=== PATIENT | male | born 1950 | race Caucasian/White ===

== ENCOUNTER 2016-08-02 12:11 | Inpatient (IN) | payer MEDICARE ==
[~2016-08-02] VITALS: Ht 172.7 cm; Wt 103.4 kg
[2016-08-02] MEDS ORDERED: NIACIN PO (12:24)
[2016-08-02] MEDS ORDERED: QUIN40TA PO (12:24)
[2016-08-02] MEDS ORDERED: ZOLP6.252 PO (12:24)
[2016-08-02] MEDS ORDERED: [UNRECOGNIZED DRUG - OTHER] PO (12:24)
[2016-08-02] MEDS ORDERED: ATOR40TA PO (12:24)
[2016-08-02] MEDS ORDERED: IV NORMAL SALINE 1000 ML BAG IV ONE ×2 (12:30→15:00)
[2016-08-02 12:34] LABS: BASOPHILS # (AUTO) 0.1 K/uL (0.0-8.0); EOSINOPHILS # (AUTO) 0.1 K/uL (0.0-0.7); EOSINOPHILS % (AUTO) 0.9 % (0.0-7.0); HEMATOCRIT 44.1 % (36.7-47.1); HEMOGLOBIN 15.2 g/dL (12.5-16.3); LYMPHOCYTES # (AUTO) 1.1 K/uL (40.0-85.0); LYMPHOCYTES % (AUTO) 11.9 % (20.5-51.5); MEAN CORPUSCULAR HEMOGLOBIN 31.8 uug (23.8-33.4); MEAN CORPUSCULAR HGB CONC 34 g/dL (32.5-36.3); MEAN CORPUSCULAR VOLUME 92.4 fL (73.0-96.2); MONOCYTES % (AUTO) 10.9 % (0.0-11.0); NEUTROPHILS # (AUTO) 6.6 K/uL (1.8-8.9); NEUTROPHILS % (AUTO) 75.3 % (38.5-71.5); PLATELET COUNT (AUTO) 230 K/uL (152-348); RED BLOOD CELL COUNT(AUTO) 4.77 MIL/uL (4.06-5.63); RED CELL DISTRIBUTION WIDTH 12.9 % (12.1-16.2); WHITE BLOOD COUNT (AUTO) 8.9 K/uL (3.6-10.2)
[2016-08-02 12:38] LABS: CALCIUM 8.7 mg/dL (8.5-10.1); POTASSIUM 3.1 mmol/L (3.5-5.1)
[2016-08-02 12:39] LABS: CREATININE 1.9 mg/dL (0.6-1.3)
--- NOTE | 2016-08-02 14:00 | NUR ---
pt transfered to floor in stable condition. er md aware of k level nad blood pressure . oked the pt to be transferd.
[2016-08-02 14:10] VITALS: BP 88/59
--- NOTE | 2016-08-02 14:10 | NUR ---
NEW PATIENT TO ROOM 204 FROM ER AWAKE ALERT COOPERTATE WELL VS TAKEN ,STILL LOW BP NO C/O OF DIZZINESS ON FALL PRECAUTION CALL RODRIGUEZ IN REACH AND BED ALARM ON INSTRUCTION TO CALL WHEN NEED
[2016-08-02] MEDS ORDERED: ACETAMINOPHEN 325 MG TABLET PO PRN (15:00)
[2016-08-02] MEDS ORDERED: ONDANSETRON 4 MG/2 ML VIAL IV PRN (15:00)
[2016-08-02] MEDS ORDERED: AMIODARONE HCL IV 150 MG in IV DEXTROSE 5% 100 ML IV ONE (15:00)
--- NOTE | 2016-08-02 15:00 | NUR ---
START IVF BOLUS ORDER RESTING NO SOB OR PAIN
[2016-08-02] MEDS ORDERED: IV NS 1000 ML 1,000 ML IV ONE (15:15)
[2016-08-02] MEDS ORDERED: POTASSIUM CHLORIDE 10 MEQ CAPSULE.SA PO ONE (15:15)
[2016-08-02] MEDS ORDERED: AMIODARONE HCL IV 900 MG in IV DEXTROSE 5% 482 ML IV PRN (15:15)
[2016-08-02 16:19] VITALS: BP 86/44
--- NOTE | 2016-08-02 17:00 | NUR ---
EAT DINNER WELL NO PAIN OR SOB
[2016-08-02 18:00] VITALS: BP 90/54
[2016-08-02] MEDS ORDERED: RIVAROXABAN 15 MG TABLET PO SCH (18:00)
--- NOTE | 2016-08-02 18:00 | NUR ---
STABLE HEMODYNAMIC NO RESPIRATORY DISTRESS NO DIZZINESS SAFETY MEASURE PROVIDED CALL RODRIGUEZ WITHIN REACH AND INSTRUCTION TO USE WHEN NEED
[2016-08-02] MEDS: IV NS 1000 ML 1,000 ML IV PRN (18:13)
[2016-08-02 20:00] VITALS: BP 95/56
[2016-08-02] MEDS: ATORVASTATIN 40 MG TABLET PO SCH ×2 (20:36→20:51)
--- NOTE | 2016-08-02 20:50 | NUR ---
REFUSED LIPITOR, "I TOOK IT THIS MORNING."
[2016-08-02] MEDS ORDERED: ZOLPIDEM 5 MG TABLET PO PRN (22:45)
[2016-08-02] MEDS ORDERED: ZOLPIDEM 5 MG TABLET ONE (22:49)
[2016-08-03 00:18] VITALS: BP 94/52
[2016-08-03 04:00] VITALS: BP 105/60
[2016-08-03] MEDS: IV NS 1000 ML 1,000 ML IV PRN (06:00)
--- NOTE | 2016-08-03 06:41 | NUR ---
PT RESTING IN BED AT THIS TIME, WAS GIVEN AMBIEN LAST NIGHT REQUESTED AND PRESCRIBED. IN NO ACUTE SIGNS OF DISTRESS. DENIES PAIN. IVF INFUSING. V/S CHECKED AND RECORDED. ON SINUS RHYTHM ON TELE. NO C/O DIZZINESS DURING SHIFT. SAFETY MAINTAINED. CALL LIGHT WITHIN REACH.
[2016-08-03 07:03] LABS: ALBUMIN 2.9 g/dL (3.4-5.0); BILIRUBIN,TOTAL 0.5 mg/dL (0.2-1.0); CALCIUM 7.9 mg/dL (8.5-10.1); CREATININE 1.3 mg/dL (0.6-1.3); MAGNESIUM 1.8 mg/dL (1.8-2.4); PHOSPHOROUS 3.8 mg/dL (2.5-4.9); POTASSIUM 3.2 mmol/L (3.5-5.1); TOTAL PROTEIN, SERUM 6.4 g/dL (6.4-8.2)
[2016-08-03 07:08] LABS: BASOPHILS % (AUTO) 0.3 % (0.0-2.0); EOSINOPHILS # (AUTO) 0.1 K/uL (0.0-0.7); LYMPHOCYTES % (AUTO) 27.6 % (20.5-51.5); MEAN CORPUSCULAR HEMOGLOBIN 32.5 uug (23.8-33.4); MEAN CORPUSCULAR HGB CONC 35 g/dL (32.5-36.3); MEAN CORPUSCULAR VOLUME 94.1 fL (73.0-96.2); MONOCYTES # (AUTO) 0.7 K/uL (2.0-10.0); MONOCYTES % (AUTO) 10.2 % (0.0-11.0); NEUTROPHILS # (AUTO) 4.4 K/uL (1.8-8.9); NEUTROPHILS % (AUTO) 59.9 % (38.5-71.5); PLATELET COUNT (AUTO) 190 K/uL (152-348); RED BLOOD CELL COUNT(AUTO) 3.69 MIL/uL (4.06-5.63); WHITE BLOOD COUNT (AUTO) 7.2 K/uL (3.6-10.2)
[2016-08-03 07:21] LABS: THYROID STIMULATING HORMONE 1.837 mIU/mL (0.358-3.740)
[2016-08-03 07:24] LABS: HEMATOCRIT 34.7 % (36.7-47.1)
[2016-08-03] MEDS: POTASSIUM CHLORIDE 50 ML IV SCH ×4 (11:01→13:02)
[2016-08-03 12:00] VITALS: BP 114/66
[2016-08-03] MEDS ORDERED: POTASSIUM CHLORIDE 10 MEQ CAPSULE.SA PO ONE (13:30)
[2016-08-03 16:00] VITALS: BP 110/60
--- NOTE | 2016-08-03 17:30 | NUR ---
PT. SEEN BY DR. VEE, CARDIOLOGY NEUROLOGY, 2D ECHO DONE. RESULTS REVIEWED WITH PT. HOME INSTRUCTIONS REVIEWED WITH PT. DISCHARGED TO HOME. iv d/c'D
== END 2016-08-03 17:30 | disposition home or self-care (01) | DRG 152 ==
LOC: ER 12:11 → TELE 14:10
PROVIDERS: ADMIT Nurse Practitioner Acute Care
DX: J06.9 Acute upper respiratory infection, unspecified (principal); N17.0 Acute kidney failure with tubular necrosis; D68.59 Other primary thrombophilia; E86.0 Dehydration; G47.00 Insomnia, unspecified; I10 Essential (primary) hypertension; T50.2X5A Adverse effect of carbonic-anhydrase inhibitors, benzothiadiazides and other diuretics, initial encounter; Y92.009 Unspecified place in unspecified non-institutional (private) residence as the place of occurrence of the external cause; I48.0 Paroxysmal atrial fibrillation; F41.9 Anxiety disorder, unspecified; E86.9 Volume depletion, unspecified; E78.5 Hyperlipidemia, unspecified; Z79.899 Other long term (current) drug therapy
CPT/HCPCS: 36415; 70030-TC; 71010; 83735; 84100; 84443; 85025; 85730; 93005; 93307; A4663; J3480; J7030